=== PATIENT | male | born 1930 | race Two or more races ===

== ENCOUNTER 2016-09-30 09:59 | Outpatient (CLI) | payer MEDICARE, OTHER ==
[~2016-09-30 09:59] MED LIST: ALLO300T2 PO; ASPI-991 PO; ATOR40TA PO; AZIL80TA PO; CAPT25TA3 PO; CARV12.5 PO; CHLO25TA2 PO; CLON1PAT TD; DEXL60CA3 PO; DOCU-270 PO; DOXA4TAB3 PO; EZET10TA PO; GLIP5TAB13 PO; HYDR-3326 PO; LABE200T PO; LIDO30AD10 TP; PANT40TA2 PO; POTA20TA83 PO; SITA100T PO; [UNRECOGNIZED DRUG - REMARK]
[2016-09-30] MEDS ORDERED: IV NS 0.9% 0 ML IV ONE (10:10)
[2016-09-30] MEDS ORDERED: IOHEXOL-350 100 ML VIAL IV ONE ×2 (10:10→11:14)
[2016-09-30] MEDS ORDERED: CT SWABBABLE VALVE TRANS SET 1 EA INFUS.SET MC ONE ×2 (10:10→11:16)
[2016-09-30 10:35] LABS: BASOPHILS % (AUTO) 0.9 % (0.0-2.0); EOSINOPHILS # (AUTO) 0.1 /CMM (0.0-0.7); EOSINOPHILS % (AUTO) 2.4 % (0.0-6.0); HEMATOCRIT 38 % (39-51); HEMOGLOBIN 12.6 g/dL (13.5-17.5); LYMPHOCYTES # (AUTO) 0.9 /CMM (0.8-4.8); LYMPHOCYTES % (AUTO) 18.4 % (20.0-44.0); MEAN CORPUSCULAR HEMOGLOBIN 31 PG (26.0-33.0); MEAN CORPUSCULAR HGB CONC 34 g/dl (31.0-36.0); MEAN CORPUSCULAR VOLUME 93 fL (80-96); MONOCYTES # (AUTO) 0.4 /CMM (0.1-1.30); MONOCYTES % (AUTO) 7.7 % (2.0-12.0); NEUTROPHILS # (AUTO) 3.6 /CMM (1.8-8.9); NEUTROPHILS % (AUTO) 70.6 % (43.0-81.0); PLATELET COUNT (AUTO) 249 /CMM (150-450); RDW COEFFICIENT OF VARIATION 14.6 (11.5-15.0); RED BLOOD CELL COUNT(AUTO) 4.05 MIL/uL (4.5-6.0); WHITE BLOOD COUNT (AUTO) 5.1 K/uL (4.3-11.0)
[2016-09-30 10:52] LABS: ALANINE AMINOTRANSFERASE 26 U/L (12-78); ALBUMIN 3.4 g/dL (3.4-5.0); ALKALINE PHOSPHATASE 76 U/L (46-116); ASPARTATE AMINOTRANSFERASE 18 U/L (15-37); BILIRUBIN,TOTAL 0.7 mg/dL (0.2-1.0); CALCIUM, SERUM 8.9 mg/dL (8.5-10.1); CARBON DIOXIDE 30 mmol/L (21-32); CHLORIDE 102 mmol/L (98-107); CREATININE 1.3 mg/dL (0.6-1.3); GLUCOSE 114 mg/dL (74-106); MAGNESIUM 1.8 mg/dL (1.8-2.4); POTASSIUM 3.4 mmol/L (3.5-5.1); SODIUM SERUM 134 mmol/L (136-145); UREA NITROGEN, BLOOD 21 mg/dL (7-18)
[2016-09-30] MEDS ORDERED: IV NS 0.9% 250 ML IV ONE (11:14)
[2016-09-30] MEDS ORDERED: NITROGLYCERIN 4.9 GM SPRAY ONE (11:16)
[2016-09-30 11:26] LABS: CHOLESTEROL 162 mg/dL (<200); HDL CHOLESTEROL 51 mg/dL (40-60); LDL 88 mg/dL (0-99); THYROID STIMULATING HORMONE 1.235 uIU/mL (0.358-3.74); TRIGLYCERIDES 93 mg/dL (30-150)
== END 2016-09-30 23:59 | disposition home or self-care (01) ==
LOC: RAD 09:59
PROVIDERS: ATTEND Internal Medicine Interventional Cardiology
DX: I25.10 Atherosclerotic heart disease of native coronary artery without angina pectoris (principal); I73.9 Peripheral vascular disease, unspecified; Z95.5 Presence of coronary angioplasty implant and graft; I65.22 Occlusion and stenosis of left carotid artery; I77.819 Aortic ectasia, unspecified site; J98.11 Atelectasis; J47.9 Bronchiectasis, uncomplicated
CPT/HCPCS: 75574; 80053; 80061; 82306; 83735; 84439; 84443; 85025; J7050; Q9967; 36415

== ENCOUNTER 2016-10-01 08:50 | Outpatient (CLI) | payer MEDICARE, OTHER ==
[2016-10-01] MEDS ORDERED: IOHEXOL-350 100 ML VIAL IV ONE (09:55)
[2016-10-01] MEDS ORDERED: IV NS 0.9% 250 ML IV ONE (09:55)
[2016-10-01] MEDS ORDERED: CT SWABBABLE VALVE TRANS SET 1 EA INFUS.SET MC ONE (09:55)
== END 2016-10-01 23:59 | disposition home or self-care (01) ==
LOC: CT 08:50
PROVIDERS: ATTEND Internal Medicine Interventional Cardiology
DX: I25.10 Atherosclerotic heart disease of native coronary artery without angina pectoris (principal); E78.5 Hyperlipidemia, unspecified; I77.819 Aortic ectasia, unspecified site; I72.3 Aneurysm of iliac artery; N28.1 Cyst of kidney, acquired; N26.1 Atrophy of kidney (terminal); K57.30 Diverticulosis of large intestine without perforation or abscess without bleeding; I77.89 Other specified disorders of arteries and arterioles; M79.604 Pain in right leg; M79.605 Pain in left leg; R53.83 Other fatigue; R53.81 Other malaise; Z95.5 Presence of coronary angioplasty implant and graft
CPT/HCPCS: 75635; 93925; J7050; Q9967